=== PATIENT | female | born 1975 | race Caucasian/White ===

== ENCOUNTER 2018-09-28 08:53 | Inpatient (IN) | payer OTHER ==
[~2018-09-28] VITALS: Ht 152.4 cm; Wt 93.6 kg
[2018-09-28] VITALS (9 sets, daily range): BP systolic 107–163; BP diastolic 62–106; Ht 152.4 cm; Wt 93.6 kg
--- NOTE | ~2018-09-28 | MORECARE ---
CASE MANAGEMENT DISCHARGE SUMMARY PATIENT: JORGE MOSER UNIT: [id number] ADM DATE: 09/28/18 AGE: 43 : 71 SEX: F ROOM/BED: D.2216 AUTHOR: JUVE,DOC PHYSICIAN: REFERRING PHYSICIAN: SOLEDAD STANLEY MD DATE OF SERVICE: 09/30/18 Discharge Plan Patient Name: JORGE MOSER Facility: [facility]:[place] : 1975 Planned Disposition: Home Anticipated Discharge Date: Discharge Date: Expected LOS: Initial Reviewer: [email or web address] Initial Review Date: 09/28/2018 Generated: 09/30/18 4:40 pm Comments DCP- Discharge Planning Updated by [email or web address]: Jen Raza on 09/30/18 2:[address] Patient Name: JORGE MOSER Admission Status: ER Accout number: [id number] Admission Date: 09-28-2018 : 1975 Admission Diagnosis:DVTRCLI OF INTEST, PART UNSP, 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 Patient lives independently. Her friend Abril will be her bottom hoop driver home. She denies any HH or DME and will not need anything at discharge. She stated her home is safe to return. CM will continue to follow and assist with DC planning as needed Senior Pastor: Jen Raza DCPIA - Discharge Planning Initial Assessment Updated by [email or web address]: Jen Raza on 09/30/18 3:30 pm * Is the patient Alert and Oriented? Yes * How many steps to enter\exit or inside your home? * PCP [facility] * Pharmacy [facility] * Preadmission Environment Home with Family * ADLs Independent * Equipment None * Verbal permission to speak to the caregivers and representatives has been obtained from the patient. N/A * Community resources currently utilized None * Additional services required to return to the preadmission environment? No * Can the patient safely return to the preadmission environment? Yes * Has this patient been hospitalized within the prior 30 days at any hospital? No Last DP export: 09/30/18 2:32 Patient Name: JORGE MOSER Page [id number] at 1540 All edits/amendments must be made on the electronic document DICTATION DATE: 09/30/18 1540 MANAGER AIR: WILDA 09/30/18 1540 RPT#: [id number] DC DATE: STATUS: ADM IN [facility] [address] [place] [address] END OF REPORT
--- NOTE | ~2018-09-28 | MORECARE ---
CASE MANAGEMENT DISCHARGE SUMMARY PATIENT: JORGE MOSER UNIT: [id number] ADM DATE: 09/28/18 AGE: 43 : 71 SEX: F ROOM/BED: D.2216 AUTHOR: JUVEDOC PHYSICIAN: REFERRING PHYSICIAN: SOLEDAD STANLEY MD DATE OF SERVICE: 10/03/18 Discharge Plan Patient Name: JORGE MOSER Facility: [facility]:[place] : 1975 Planned Disposition: Home Anticipated Discharge Date: Discharge Date: 09/30/2018 Expected LOS: Initial Reviewer: [email or web address] Initial Review Date: 09/28/2018 Generated: 10/03/18 3:58 pm Comments DCP- Discharge Planning Updated by [email or web address]: Jen Raza on 09/30/18 2:[address] Patient Name: JORGE MOSER Admission Status: ER Accout number: [id number] Admission Date: 09-28-2018 : 1975 Admission Diagnosis:DVTRCLI OF INTEST, PART UNSP, 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 Patient lives independently. Her friend Abril will be her parts delivery driver home. She denies any HH or DME and will not need anything at discharge. She stated her home is safe to return. CM will continue to follow and assist with DC planning as needed Turner Machine Operator: Jen Raza DCPIA - Discharge Planning Initial Assessment Updated by [email or web address]: Jen Raza on 09/30/18 3:30 pm * Is the patient Alert and Oriented? Yes * How many steps to enter\exit or inside your home? * PCP [facility] * Pharmacy [facility] * Preadmission Environment Home with Family * ADLs Independent * Equipment None * Verbal permission to speak to the caregivers and representatives has been obtained from the patient. N/A * Community resources currently utilized None * Additional services required to return to the preadmission environment? No * Can the patient safely return to the preadmission environment? Yes * Has this patient been hospitalized within the prior 30 days at any hospital? No Last DP export: 09/30/18 2:40 Patient Name: JORGE MOSER Page [id number] at 1458 All edits/amendments must be made on the electronic document DICTATION DATE: 10/03/181457 HEAD OF VISUAL MERCHANDISING: WILDA 10/03/181457 RPT#: [id number] DC DATE:09/30/18 STATUS: DIS IN [facility] [address] [place] [address] END OF REPORT
--- NOTE | ~2018-09-28 | MORECARE ---
CASE MANAGEMENT DISCHARGE SUMMARY PATIENT: JORGE MOSER UNIT: [id number] ADM DATE: 09/28/18 AGE: 43 : 71 SEX: F ROOM/BED: D.2216 AUTHOR: NAMAN AN PHYSICIAN: REFERRING PHYSICIAN: SOLEDAD STANLEY MD DATE OF SERVICE: 09/30/18 Discharge Plan Patient Name: JORGE MOSER [facility] [facility] 1975 Planned Disposition: Home Anticipated Discharge Date: Discharge Date: Expected LOS: Initial Reviewer: [email or web address] Initial Review Date: 09/28/2018 Generated: 09/30/18 4:32 pm DCPIA - Discharge Planning Initial Assessment Updated by [email or web address]: Jen Raza on 09/30/18 3:30 pm * Is the patient Alert and Oriented? Yes * How many steps to enter\exit or inside your home? * PCP [facility] * Pharmacy [facility] [address] * Preadmission Environment Home with Family * ADLs Independent * Equipment None * Verbal permission to speak to the caregivers and representatives has been obtained from the patient. N/A * Community resources currently utilized None * Additional services required to return to the preadmission environment? No * Can the patient safely return to the preadmission environment? Yes * Has this patient been hospitalized within the prior 30 days at any hospital? No Patient Name: JORGE MOSRE Page [phone] at 1532 All edits/amendments must be made on the electronic document DICTATION DATE: 09/30/18 1531 QUAIL FARMER: WILDA 09/30/18 1531 RPT#: [id number] DC DATE: STATUS: ADM IN [facility] [address] [place] [address] END OF REPORT
[2018-09-28] MEDS ORDERED: PRINIVIL20 MG PO (08:58)
[2018-09-28 09:18] LABS: BASOPHILS 0.2 % (0-2); EOSINOPHILS 0.6 % (0-7); HEMATOCRIT 42.7 % (36.0-48.0); HEMOGLOBIN 14.9 g/dL (12-16); IMMATURE GRANULOCYTES 0.3 % (0-5); LYMPHOCYTES 8.3 % (15-50); MCH 29.9 pg (26.0-34.0); MCHC 34.9 g/dL (31.0-37.0); MCV 85.7 fL (80.0-100.0); MONOCYTES 9.2 % (2-11); NEUTROPHILS 81.4 % (40-80); PLATELET COUNT 275 10x3/uL (130-400); RBC 4.98 10x6/uL (4.00-5.40); RDW 12.8 % (11.5-14.5); WBC 14.9 10x3/uL (4.8-10.8)
[2018-09-28 09:23] LABS: APPEARANCE CLEAR (CLEAR); BACTERIA FEW /hpf (NONE SEEN); BILIRUBIN NEGATIVE (NEGATIVE); COLOR YELLOW (YELLOW); EPITHELIAL CELLS 0-5 /hpf (0-5); GLUCOSE NEGATIVE (NEGATIVE); KETONE NEGATIVE (NEGATIVE); NITRITE NEGATIVE (NEGATIVE); PROTEIN TRACE mg/dL (NEGATIVE); RED CELLS - URINE 0-5 /hpf (0-5); SPECIFIC GRAVITY 1.015 (1.005-1.020); UROBILINOGEN NORMAL (NORMAL); WHITE CELLS - URINE 0-5 /hpf (0-5)
[2018-09-28 09:32] LABS: ALBUMIN 3.9 g/dL (3.4-5.0); ALKALINE PHOSPHATASE 69 U/L (46-116); ALT (SGPT) 16 U/L (10-68); BILIRUBIN - TOTAL 0.87 mg/dL (0.2-1.3); CALC OSMOLALITY 280 mosm/kg (275-300); CALCIUM 8.9 mg/dL (8.5-10.1); CARBON DIOXIDE 27.4 mmol/L (21.0-32.0); CHLORIDE - SERUM 105 mmol/L (98-107); CREATININE - SERUM 0.9 mg/dL (0.6-1.3); GLUCOSE 110 mg/dL (74-106); POTASSIUM - SERUM 3.8 mmol/L (3.5-5.1); PROTEIN - SERUM 7.6 g/dL (6.4-8.2); SODIUM 141 mmol/L (136-145); UREA NITROGEN 11 mg/dL (7-18); eGFR NON AFRICAN AMERICAN 72 mL/min (90-120)
[2018-09-28 09:35] LABS: AMYLASE - SERUM 40 U/L (25-115); LIPASE 171 U/L (73-393); TROPONIN-I < 0.017 ng/mL (0.000-0.060)
[2018-09-29] VITALS: BP 96/59
[2018-09-29 04:00] VITALS: BP 111/67
[2018-09-29 04:32] LABS: BASOPHILS 0.2 % (0-2); EOSINOPHILS 0.3 % (0-7); HEMATOCRIT 36.1 % (36.0-48.0); HEMOGLOBIN 12.6 g/dL (12-16); IMMATURE GRANULOCYTES 0.2 % (0-5); LYMPHOCYTES 15.4 % (15-50); MCH 30.2 pg (26.0-34.0); MCHC 34.9 g/dL (31.0-37.0); MCV 86.6 fL (80.0-100.0); MEAN PLATELET VOLUME 11.2 fL (7.4-10.4); NEUTROPHILS 74.9 % (40-80); PLATELET COUNT 239 10x3/uL (130-400); RBC 4.17 10x6/uL (4.00-5.40); WBC 13.1 10x3/uL (4.8-10.8)
[2018-09-29 04:56] LABS: ALBUMIN 2.9 g/dL (3.4-5.0); ALKALINE PHOSPHATASE 48 U/L (46-116); ALT (SGPT) 16 U/L (10-68); BILIRUBIN - TOTAL 0.97 mg/dL (0.2-1.3); CALC OSMOLALITY 279 mosm/kg (275-300); CALCIUM 8.2 mg/dL (8.5-10.1); CARBON DIOXIDE 27.8 mmol/L (21.0-32.0); CHLORIDE - SERUM 106 mmol/L (98-107); CREATININE - SERUM 0.8 mg/dL (0.6-1.3); GLUCOSE 113 mg/dL (74-106); POTASSIUM - SERUM 3.9 mmol/L (3.5-5.1); PROTEIN - SERUM 6.1 g/dL (6.4-8.2); SODIUM 141 mmol/L (136-145); UREA NITROGEN 7 mg/dL (7-18); eGFR NON AFRICAN AMERICAN 82 mL/min (90-120)
[2018-09-29 12:54] VITALS: BP 131/73
[2018-09-29 15:18] VITALS: BP 124/77
[2018-09-29 20:41] VITALS: BP 140/89
[2018-09-30 04:39] VITALS: BP 133/60
[2018-09-30 05:53] LABS: BASOPHILS 0.2 % (0-2); EOSINOPHILS 2.4 % (0-7); HEMATOCRIT 36.1 % (36.0-48.0); IMMATURE GRANULOCYTES 0.3 % (0-5); LYMPHOCYTES 29.8 % (15-50); MCHC 33.2 g/dL (31.0-37.0); MCV 87.2 fL (80.0-100.0); MEAN PLATELET VOLUME 11.4 fL (7.4-10.4); MONOCYTES 9.7 % (2-11); NEUTROPHILS 57.6 % (40-80); PLATELET COUNT 227 10x3/uL (130-400); RBC 4.14 10x6/uL (4.00-5.40); RDW 12.9 % (11.5-14.5)
[2018-09-30 06:00] LABS: WBC 9.2 10x3/uL (4.8-10.8)
[2018-09-30 06:15] LABS: CALC OSMOLALITY 285 mosm/kg (275-300); CALCIUM 8.4 mg/dL (8.5-10.1); CARBON DIOXIDE 26.2 mmol/L (21.0-32.0); CHLORIDE - SERUM 109 mmol/L (98-107); CREATININE - SERUM 0.8 mg/dL (0.6-1.3); GLUCOSE 93 mg/dL (74-106); POTASSIUM - SERUM 3.7 mmol/L (3.5-5.1); SODIUM 144 mmol/L (136-145); eGFR NON AFRICAN AMERICAN 82 mL/min (90-120)
[2018-09-30 06:18] LABS: UREA NITROGEN 9 mg/dL (7-18)
[2018-09-30 08:47] VITALS: BP 137/76
[2018-09-30 13:40] VITALS: BP 159/78
[2018-09-30] MEDS ORDERED: LEVAQUIN750 MG PO (14:39)
[2018-09-30] MEDS ORDERED: FLAGYL500 MG PO (14:39)
[2018-09-30] MEDS ORDERED: MIRALAX17 GM PO (14:40)
[2018-09-30] MEDS ORDERED: HYDROCODON-ACE1 EAC7 PO (14:40)
[2018-09-30] MEDS ORDERED: ZOFRAN4 MG PO (14:40)
== END 2018-09-30 17:21 | disposition home or self-care (01) | DRG 392 ==
LOC: D.ER 08:53 → D.EDHOLD 13:29 → D.MS 13:29
PROVIDERS: Family Medicine; Internal Medicine Nephrology
DX: K57.92 Diverticulitis of intestine, part unspecified, without perforation or abscess without bleeding (principal); I10 Essential (primary) hypertension; Q51.3 Bicornate uterus